=== PATIENT | female | born 1945 | race Caucasian/White ===

== ENCOUNTER 2016-12-25 09:57 | Emergency (ER) | payer MEDICARE, BC ==
[~2016-12-25 09:57] MED LIST: AMLODIPINE BESY10 M1 PO; AMLODIPINE BESY10 MG PO; ANTIVERT12.5 MG PO; BENICAR40 MG PO; BISOPROLOL FUMA10 MG PO; BISOPROLOL FUMAR5 M1 PO; CLONIDINE HCL0.3 MG PO; COZAAR50 M1 PO; FENOFIBRATE160 MG PO; GLIMEPIRIDE2 MG PO; GLIPIZIDE ER10 MG PO; GLIPIZIDE10 M2 PO; HYDROCHLOROTHIA25 M1 PO; PERCOCET 5-3251 EACH PO; POTASSIUM CITR10 MEQ PO; PRAVACHOL10 MG PO; PRAVASTATIN SOD10 M1 PO; TRADJENTA5 M1 PO; TRESIBA FL200 UNIT/1 SC; TRICOR145 M1 PO; ULTRAM50 M1 PO; UROCIT-K10 ME1 PO; XARELTO15 M1 PO
[2016-12-25 10:31] LABS: BASO % 0.2 % (0-2); EOS % 3.9 % (0-7); EOSINOPHIL ABSOLUTE COUNT 0.4 tho/cmm (0.0-0.7); HCT-HEMATOCRIT 39.8 % (34.0-49.0); HGB-HEMOGLOBIN 13.7 gm/dl (12.0-15.5); IMMATURE GRANULOCYTES ABSOLUTE 0.02 tho/cmm (0-0.03); IMMATURE GRANULOCYTES PERCENT 0.2 % (0-0.3); LYMPH % 14.5 % (20-45); LYMPH ABSOLUTE COUNT 1.5 tho/cmm (0.8-4.5); MCH (MEAN CORPUSCULAR HGB) 29.1 pg (28.0-32.0); MCHC MEAN CORPUSCULAR HGB CONC 34.4 % (32.0-36.0); MCV (MEAN CELL VOLUME) 84.7 fl (82.0-96.0); MEAN PLATELET VOLUME 10.3 cmc (9.4-12.4); MONO % 9.2 % (0-12); NEUTROPHIL ABSOLUTE COUNT 7.5 tho/cmm (1.6-8.0); NEUTROPHIL-AUTOMATED 7.5 tho/cmm (1.6-8.0); PLATELET COUNT 356 tho/cmm (150-450); WHITE BLOOD COUNT 10.4 tho/cmm (4.0-10.0)
[2016-12-25 10:58] LABS: ANION GAP 17 mmol/L (0-20); BLOOD UREA NITROGEN 70 mg/dl (6-24); CALCIUM 9.3 mg/dl (8.5-10.5); CARBON DIOXIDE-VENOUS 19 mmol/L (22-32); CHLORIDE 105 mmol/l (96-110); CREATININE 3.33 mg/dl (0.50-1.10); GLUCOSE 150 mg/dL (70-110); SODIUM 137 mmol/L (135-145); eGFR VALUE FOR BLACK 16 mL/Min
[2016-12-25 11:07] LABS: POTASSIUM 4.2 mmol/L (3.7-5.1)
== END 2016-12-25 14:40 ==
LOC: EDMED 09:57
PROVIDERS: Emergency Medicine
DX: N28.9 Disorder of kidney and ureter, unspecified (principal); R19.7 Diarrhea, unspecified; I48.91 Unspecified atrial fibrillation
CPT/HCPCS: J7030